=== PATIENT | female | born 2000 | race Hispanic/Latino ===

== ENCOUNTER 2021-05-04 13:58 | Emergency (ER) | payer SELFPAY ==
[2021-05-04 15:16] LABS: Urine Blood 3+ (Negative); Urine Glucose Negative (Negative); Urine Protein Negative (Negative)
[2021-05-04 15:25] LABS: Hematocrit 37.9 % (36.0-45.0); Lymphocytes % 22.2 % (15.3-44.8); MPV 7.3 fL (7.6-11.3); RBC Red Blood Cell Count 4.01 M/uL (3.86-4.86)
[2021-05-04 15:43] LABS: BUN Blood Urea Nitrogen 8 mg/dL (7-18); Bicarbonate 27 mmol/L (21-32); Glucose Level 97 mg/dL (74-106); HCG, Quantitative 324 mIU/mL (1-3); Potassium 3.4 mmol/L (3.5-5.1); Sodium Level 137 mmol/L (136-145)
--- NOTE | 2021-05-04 16:59 | RAD REPORT ---
EXAM DESCRIPTION: US - Transvaginal OB - 05/04/2021 4:24 pm CLINICAL HISTORY: Abd cramping, ;Vaginal bleeding COMPARISON: No comparisons FINDINGS: The uterus is normal sized. Endometrium is normal in thickness. No intrauterine seen. The left ovary is obscured by bowel gas. The right ovary is normal in size measuring 2.1 x 2.0 cm nor mal blood flow. IMPRESSION: No IUP is identified. In the setting of a positive HCG level, this would indicate pregna ncy of unknown location. Advise serial HCG follow-up and follow-up pelvic sonogram in 10-12 days.
--- NOTE | 2021-05-04 17:08 | EDPHYS ---
Physician Documentation [facility] Name: Darby Burt Age: 21 yrs Sex: Female : 2000 Arrival Date: 05/04/2021 Time: 13:59 Bed Waiting Private MD: ED Physician Aaron Jacques HPI: 05/04 15:36 This 21 yrs old Female presents to ER via Ambulatory with complaints of kb Vaginal Bleeding, + Preg <12wks, Pelvic Pain. 15:36 The patient presents to the emergency department with abdominal pain, described as kb crampy, vaginal bleeding, that is heavy. The estimated gestational age is 6 weeks. course: care: none, Leakage of Fluid: none appreciated, Ultrasound: the patient has not had an ultrasound. Previous pregnancies: the patient has never been . Associated signs and symptoms: Pertinent positives: abdominal pain, vaginal bleeding, Pertinent negatives: chest pain, diarrhea, dysuria, fever, frequency, nausea, ruptured membranes, seizure, shortness of breath, vaginal discharge, vomiting. The patient has not experienced similar symptoms in the past. The patient has not recently seen a physician. RN [facility]: 15:01 1, 0, Living 0, LMP 03/23/2021 iw 15:36 1, 0, Living 0, LMP 03/23/2021 kb Historical: - Allergies: 15:00 No Known Allergies; iw - Home Meds: 15:00 None [Active]; iw - PMHx: 15:00 None; iw - PSHx: 15:00 None; iw - Immunization history:: Client reports having NOT received the Covid vaccine. - Social history:: Smoking status: Patient reports the use of cigarette tobacco products, smokes one-half pack cigarettes per day. ROS: 15:34 Constitutional: Negative for fever, chills, and weight loss. kb 15:34 Abdomen/GI: Positive for abdominal cramps. 15:34 : Positive for vaginal bleeding. 15:34 MS/extremity: Positive for pain, of the posterior aspect of right shoulder. 15:34 All other systems are negative. Exam: 15:35 Constitutional: This is a well developed, well nourished patient who is awake, alert, kb and in no acute distress. Head/Face: Normocephalic, atraumatic. ENT: Moist Mucous membranes Cardiovascular: Regular rate and rhythm with a normal S1 and S2. No gallops, murmurs, or rubs. No pulse deficits. Respiratory: Respirations even and unlabored. No increased work of breathing. Talking in full sentences Abdomen/GI: Soft, non-tender. No distention Skin: Warm, dry with normal turgor. Normal color. Neuro: Awake and alert, GCS 15, oriented to person, place, time, and situation. Moves all extremities. Normal gait. Psych: Awake, alert, with orientation to person, place and time. Behavior, mood, and affect are within normal limits. 15:36 Musculoskeletal/extremity: Extremities: grossly normal except: noted in the posterior kb aspect of right shoulder: pain, tenderness, ROM: limited active range of motion due to pain, in the posterior aspect of right shoulder, Circulation is intact in all extremities. Sensation intact. Vital Signs: 14:58 BP 115 / 91; Pulse 74; Resp 18; Temp 97.9; Pulse Ox 100% ; Weight 52.62 kg; Height 5 iw ft. 0 in. (152.40 cm); Pain 6/10; 14:58 Body Mass Index 22.65 (52.62 kg, 152.40 cm) iw MDM: 15:04 Patient medically screened. kb 15:35 Data reviewed: vital signs, nurses notes. Data interpreted: Pulse oximetry: on room air kb is 100 %. Interpretation: normal. 17:06 Counseling: I had a detailed discussion with the patient and/or guardian regarding: the kb historical points, exam findings, and any diagnostic results supporting the discharge/admit diagnosis, lab results, radiology results, the need for outpatient follow up, an OB/Gyne specialist, to return to the emergency department if symptoms worsen or persist or if there are any questions or concerns that arise at home. 05/04 15:02 Order name: Abo/rh Typing iw 05/04 15:02 Order name: Basic Metabolic Panel; Complete Time: 16:17 iw 05/04 15:02 Order name: CBC with Diff; Complete Time: 15:29 iw 05/04 15:02 Order name: Quantitative Hcg; Complete Time: 16:17 iw 05/04 15:02 Order name: ABO/RH typing; Complete Time: 16:17 EDMS 05/04 15:16 Order name: Urine Dipstick-Ancillary; Complete Time: 15:21 EDMS 05/04 15:02 Order name: IV Saline Lock iw 05/04 15:02 Order name: Labs collected and sent iw 05/04 15:02 Order name: NPO iw 05/04 15:02 Order name: Urine Dipstick-Ancillary (obtain specimen) iw 05/04 15:02 Order name: Urine Test (obtain specimen) iw 05/04 15:03 Order name: Shoulder Right (2 View) XRAY iw 05/04 15:20 Order name: Urine --Ancillary (enter results) bd 05/04 15:30 Order name: US Transvaginal Ob; Complete Time: 17:02 kb Administered Medications: No medications were administered Disposition: 05/05 08:46 Co-signature as Attending Physician, Aaron Jacques MD I agree with the assessment and josé miguel plan of care. Disposition Summary: 05/04/21 17:07 Discharge Ordered Location: Home kb Condition: Stable kb Diagnosis - Threatened kb Followup: kb - With: Emergency Department - When: As needed - Reason: Worsening of condition Followup: kb - With: Private Physician - When: 2 - 3 days - Reason: Recheck today's complaints, Continuance of care, Re-evaluation by your physician Discharge Instructions: - Discharge Summary Sheet kb - Threatened Miscarriage, [id number] kb - Vaginal Bleeding During , First Trimester, [id number] kb Forms: - Medication Reconciliation Form kb - Thank You Letter kb - Antibiotic Education kb - Prescription Opioid Use kb Signatures: Dispatcher [employer] EDOR Hanna Whaley, REINFORCEMENT MAKER-C JOHN-Aaron Ferrara MD MD cha Williams, Irene, RN RN Corrections: (The following items were deleted from the chart) 05/04 15:36 15:35 Constitutional: This is a well developed, well nourished patient who is awake, kb alert, and in no acute distress. Head/Face: Normocephalic, atraumatic. ENT: Moist Mucous membranes Cardiovascular: Regular rate and rhythm with a normal S1 and S2. No gallops, murmurs, or rubs. No pulse deficits. Respiratory: Respirations even and unlabored. No increased work of breathing. Talking in full sentences Abdomen/GI: Soft, non-tender. No distention Skin: Warm, dry with normal turgor. Normal color. MS/ Extremity: Pulses equal, no cyanosis. Neurovascular intact. Full, normal range of motion. Neuro: Awake and alert, GCS 15, oriented to person, place, time, and situation. Moves all extremities. Normal gait. Psych: Awake, alert, with orientation to person, place and time. Behavior, mood, and affect are within normal limits. kb
--- NOTE | 2021-05-04 17:08 | ER ---
Nurse's Notes [facility] Name: Darby Burt Age: 21 yrs Sex: Female : 2000 Arrival Date: 05/04/2021 Time: 13:59 Bed Waiting Private MD: Diagnosis: Threatened Presentation: 05/04 14:58 Chief complaint: Patient states: heavy vaginal bleeding for 3 days, fatigue, cramping. iw Coronavirus screen: Vaccine status: Patient reports being unvaccinated. Ebola Screen: Patient negative for fever greater than or equal to 101.5 degrees Fahrenheit, and additional compatible Ebola Virus Disease symptoms Patient denies exposure to infectious person. Patient denies travel to an Ebola-affected area in the 21 days before illness onset. No symptoms or risks identified at this time. Initial Sepsis Screen: Does the patient meet any 2 criteria? No. Patient's initial sepsis screen is negative. Does the patient have a suspected source of infection? No. Patient's initial sepsis screen is negative. Risk Assessment: Do you want to hurt yourself or someone else? Patient reports no desire to harm self or others. Onset of symptoms was May 01, 2021. 14:58 Method Of Arrival: Ambulatory iw 14:58 Acuity: RANDY 3 iw FLAT BED OPERATOR: 15:01 1, 0, Living 0, LMP 03/23/2021 iw 15:36 1, 0, Living 0, LMP 03/23/2021 kb Historical: - Allergies: 15:00 No Known Allergies; iw - Home Meds: 15:00 None [Active]; iw - PMHx: 15:00 None; iw - PSHx: 15:00 None; iw - Immunization history:: Client reports having NOT received the Covid vaccine. - Social history:: Smoking status: Patient reports the use of cigarette tobacco products, smokes one-half pack cigarettes per day. Vital Signs: 14:58 BP 115 / 91; Pulse 74; Resp 18; Temp 97.9; Pulse Ox 100% ; Weight 52.62 kg; Height 5 iw ft. 0 in. (152.40 cm); Pain 6/10; 14:58 Body Mass Index 22.65 (52.62 kg, 152.40 cm) ED Course: 13:59 Patient arrived in ED. as 15:00 Triage completed. iw 15:02 Arm band placed on left wrist. iw 15:04 Hanna Whaley FNP-C [facility]. kb 15:04 Aaron Jacques MD is Attending Physician. kb 16:25 US Transvaginal Ob In Process Unspecified. EDMS 18:00 Shoulder Right (2 View) XRAY In Process Unspecified. EDMS Administered Medications: No medications were administered Outcome: 17:07 Discharge ordered by . kb 17:23 Patient left the ED. kb Signatures: Dispatcher [employer] EDMS Hanna Whaley FNP-C FNP-Ckb Martinez, Amelia as Larisa Hammonds, RN RN iw
[2021-05-04 17:36] VITALS: BP 115/91; TEMP 97.9; O2SAT 100
--- NOTE | 2021-05-04 18:07 | RAD REPORT ---
EXAM DESCRIPTION: RAD - Shoulder Right 2 View - 05/04/2021 6:00 pm CLINICAL HISTORY: PAIN COMPARISON: No comparisons FINDINGS: No fracture or dislocation is seen.
== END 2021-05-04 17:23 | disposition home or self-care (01) ==
LOC: ER 13:58
DX: O20.0 Threatened abortion (principal); O99.331 Smoking (tobacco) complicating pregnancy, first trimester; F17.210 Nicotine dependence, cigarettes, uncomplicated
CPT/HCPCS: 36415; 76817; 80048; 81003; 81025; 84702; 85025; 86900; 86901; 99282